=== PATIENT | female | born 1955 | race Caucasian/White ===

== ENCOUNTER 2017-01-20 12:23 | Emergency (ER) | payer BC ==
[2017-01-20 14:47] VITALS: BP 141/61
--- NOTE | 2017-01-20 14:55 | UC ---
Back Pain HPI - HPI Summary HPI Summary: complaint of recent back pain exacerbation that started 4 days ago pain worsened yesterday and radiating down her left leg and sometimes right leg started after sitting down more than usual and started that night MRI- 2006- DDD- neck decompression fusion 2010 constant aching pain that radiates down both legs nothing increases the pain lying down, using ice lessens the pain denies fever, incontinence took some tylenol and aleve with some relief takes zanaflex without relief couldn't sleep last night- even while taking ambien - History of Current Complaint Chief Complaint: UCBackPain Stated Complaint: LOWER BACK PAIN Time Seen by Provider: 01/20/17 14:44 Hx Obtained From: Patient Hx Last Menstrual Period: age 49 - Allergies/Home Medications Home Medications: Home Medications Lisinopril [Zestril 5 MG-] 1 tab PO QAM 01/20/17 [History Confirmed 01/20/17] Naproxen Sodium-Diphenhydramin [Aleve PM 220-25 mg] 2 tab PO BID 01/20/17 [ History Confirmed 01/20/17] PMH/Surg Hx/FS Hx/Imm Hx Previously Healthy: Yes Endocrine History Of: Denies: Diabetes, Thyroid Disease Cardiovascular History Of: Reports: Hypertension Denies: Cardiac Disorders, Pacemaker/ICD Respiratory History Of: Reports: Asthma Denies: COPD GI/ History Of: Reports: Ulcer - reflux Denies: Renal Disease Cancer History Of: Denies: Breast Cancer - Surgical History Surgical History: Yes Surgery Procedure, Year, and Place: right hand surgery - fx. d&c - fibroids. neck decompression/fusion C4-C7- r/t spurs. wisdom teeth 8/2 - Family History Known Family History: Positive: Other - father AAA mother breast cancer Negative: Hypertension, Diabetes - Social History Occupation: Employed Full-time Lives: With Family Alcohol Use: Occasionally Substance Use Type: None Smoking Status (MU): Never Smoked Tobacco Review of Systems Constitutional: Negative Skin: Negative Eyes: Negative ENT: Negative Respiratory: Negative Cardiovascular: Negative Gastrointestinal: Negative Genitourinary: Negative Motor: Negative Neurovascular: Negative Musculoskeletal: Other: - lower bcak pain Neurological: Negative Psychological: Negative All Other Systems Reviewed And Are Negative: Yes Physical Exam Triage Information Reviewed: Yes Appearance: No Pain Distress, Well-Nourished Vital Signs: Initial Vital Signs Temp 98.7 F 01/20/17 14:43 Pulse 76 01/20/17 14:43 Resp 16 01/20/17 14:43 BP 141/61 01/20/17 14:43 Pulse Ox 97 01/20/17 14:43 Vital Signs Reviewed: Yes Eyes: Positive: Conjunctiva Clear ENT: Positive: Pharynx normal, TMs normal Neck: Positive: No Lymphadenopathy Respiratory: Positive: Lungs clear, Normal breath sounds, No respiratory distress Cardiovascular: Positive: RRR, No Murmur, Pulses Normal Abdomen Description: Positive: Nontender, Soft Bowel Sounds: Positive: Present Musculoskeletal: Positive: Other: - Spine have no noted deformities or signs of inflammation. Curvature of thoracic, and lumbar spine are within normal limits. Bony features of shoulders and hips are of equal height bilaterally. Posture is upright, and gait is smooth and normal. Spinous processes of T1-L5 palpable, midline, and non-tender; No step-offs. Back muscles paraspinal tenderness-left and right lumbar area Flexion, and rotation of the remaining spinal column is within normal limits. limited extension d/t pain Patient can flex forward and cannot reach toes with minimal pain. Lateral bending causes no discomfort when bending to the right and left side. Neurological: Positive: Alert, Other: - SLR negative, pattellar reflexes intact Psychological Exam: Normal Skin Exam: Normal Re-Evaluation - Re-Evaluation First Eval Change: Unchanged - no change in pain level Back Pain Course/Dx - Course Course Of Treatment: exam completed- no red flags to warrant imaging. will refer to PT for further evaluation and treatment. no decrease in back pain with toradol- will rx for limited pain medication for 1-2 days only- followup with PCP. HAND LAUNDERER checked - Differential Dx/Diagnosis Differential Diagnosis/HQI/PQRI: Herniated Disc, Strain, Sprain Provider Diagnoses: lower back pain Discharge - Discharge Plan Condition: Stable Disposition: HOME Prescriptions: Cyclobenzaprine TAB* [Flexeril 10 MG TAB*] 10 mg PO TID PRN #30 tab PRN Reason: Spasms - Muscle HYDROcodone/ACETAMIN 5-325 MG* [[place] 5-325 TAB*] 1 - 2 tab PO Q6H PRN #8 tab MDD 8 PRN Reason: Pain - Mild Ibuprofen TAB* [Motrin TAB* 800 MG] 800 mg PO TID #30 tab Patient Education Materials: Lumbar Radiculopathy (ED), Low Back Strain (ED) Referrals: Nanda Thomason MD [Primary Care Provider] - Additional Instructions: Your blood pressure is elevated. Please contact your primary care provider within 1 day -4 weeks for further evaluation. Stop zanaflex and Start flexeril as directed. Do not drink alcohol or drive while taking flexeril. Please call physical therapy for further evaluation and treatment. Take ibuprofen for fever or pain. Increase fluids and rest. Please review your discharge instructions. If your symptoms do not improve please call your primary care provider or return to urgent care.
[2017-01-20] MEDS ORDERED: Ketorolac INJ* 60 MG/2 ML VIAL IM ONE (15:05)
== END 2017-01-20 15:54 | disposition home or self-care (01) ==
LOC: UCEAST 12:23
DX: M54.5 Low back pain (principal); I10 Essential (primary) hypertension; J45.909 Unspecified asthma, uncomplicated; K21.9 Gastro-esophageal reflux disease without esophagitis
CPT/HCPCS: 96372; 99212; G0463; J1885